=== PATIENT | female | born 1995 | race Caucasian/White ===

== ENCOUNTER 2021-02-02 18:05 | Inpatient (IN) | payer OTHER ==
[2021-02-02 19:18] VITALS: BMI 30.5
[2021-02-02] MEDS ORDERED: Misoprostol 200 MCG TAB PR PRN (19:38)
[2021-02-02] MEDS ORDERED: Methylergonovine 0.2 MG/ML VIAL IM PRN (19:38)
[2021-02-02] MEDS ORDERED: Promethazine HCl 25 MG/ML VIAL IM PRN (19:38)
[2021-02-02] MEDS ORDERED: Ondansetron PF 4 MG/2 ML Vial IVP PRN (19:38)
[2021-02-02] MEDS ORDERED: hydrALAZINE 20 MG/ML VIAL SLOW IVP PRN (19:38)
[2021-02-02] MEDS ORDERED: Lactated Ringer's 1,000 ML IV PRN (19:38)
[2021-02-02] MEDS ORDERED: Butorphanol Tartrate 1 MG/ML VIAL SLOW IVP PRN (19:38)
[2021-02-02] MEDS ORDERED: Lidocaine 1% (PF) 30 ML VIAL SC PRN (19:38)
[2021-02-02] MEDS ORDERED: HYDROcodone/Acetaminophen 5/325 mg Tablet PO PRN ×2 (19:38)
[2021-02-02] MEDS ORDERED: Ibuprofen 800 MG TAB PO PRN (19:38)
[2021-02-02] MEDS ORDERED: NS w/ Oxytocin 30 units 500 ML IV SCH ×2 (19:45)
[2021-02-02 21:15] LABS: Mean Corpuscular HGB CONC 32.1 g/dL (32.0-36.0); Mean Corpuscular Hemoglobin 27.8 pg (27.0-33.0); Mean Corpuscular Volume 86.6 fl (81.6-98.3); Mean Platelet Volume 10.6 fl (7.4-10.4); Platelet Count 273 10x3/uL (150-450); RBC Distribution Width 12.6 % (11.5-14.5); Red Blood Cell (RBC) Count 3.96 10x6/uL (3.90-5.03); White Blood Cell (WBC) Count 12.6 10x3/uL (3.5-10.5)
[2021-02-02 22:24] LABS: SARS-CoV-2 NAA Rapid Test Not Detected (NotDetected)
[2021-02-02 22:34] LABS: Hep B Surf Ag Non-Reactive S/CO (NonReactive); Syphilis Antibody Nonreactive (Nonreactive); Syphilis Antibody Index 0.05 S/CO (<1.00 Non-Reactive)
[2021-02-03] MEDS ORDERED: Fentanyl 2 mcg/Bup 0.1% Cadd 100 ML ONE
[2021-02-03] MEDS ORDERED: Naloxone HCl 0.4 mg/ml Vial IVP PRN ×2 (00:38)
[2021-02-03] MEDS ORDERED: ePHEDrine Sulfate 50 MG/10 ML VIAL SLOW IVP PRN (00:38)
[2021-02-03] MEDS ORDERED: Lactated Ringer's 500 ML IV PRN (00:38)
[2021-02-03] MEDS ORDERED: diphenhydrAMINE 50 MG/ML VIAL IVP PRN (00:38)
[2021-02-03] MEDS ORDERED: Acetaminophen 325 MG TAB PO PRN (00:38)
[2021-02-03] MEDS ORDERED: Hydrocerin (Eucerin) Cream 120 gm Jar TOP PRN (00:38)
[2021-02-03] MEDS ORDERED: Promethazine HCl 25 MG/ML VIAL IM PRN (00:38)
[2021-02-03] MEDS ORDERED: Ondansetron PF 4 MG/2 ML Vial IVP PRN ×2 (00:38→05:09)
[2021-02-03] MEDS ORDERED: Communication Order-Pharmacy FS SCH (00:45)
[2021-02-03] MEDS ORDERED: Fentanyl 2 mcg/Bupivacaine 0.1% Cassette 100 ML EPIDURAL SCH (00:45)
[2021-02-03] MEDS ORDERED: Methylergonovine 0.2 MG/ML VIAL IM PRN (05:09)
[2021-02-03] MEDS ORDERED: Milk Of Magnesia 30 ML UDCUP PO PRN (05:09)
[2021-02-03] MEDS ORDERED: NS w/ Oxytocin 30 units 500 ML IV SCH (05:09)
[2021-02-03] MEDS ORDERED: Benzocaine-Menthol 82.5 ML CAN TOP PRN (05:09)
[2021-02-03] MEDS ORDERED: Boostrix 0.5 ML (Tdap) VIAL IM ONE (05:09)
[2021-02-03] MEDS ORDERED: Bisacodyl 10 MG SUPP PR PRN (05:09)
[2021-02-03] MEDS ORDERED: hydrALAZINE 20 MG/ML VIAL SLOW IVP PRN (05:09)
[2021-02-03] MEDS ORDERED: Misoprostol 200 MCG TAB VAG PRN (05:09)
[2021-02-03] MEDS ORDERED: HYDROcodone/Acetaminophen 5/325 mg Tablet PO PRN ×2 (05:09)
[2021-02-03] MEDS: Ibuprofen 800 MG TAB PO SCH ×3 (05:47→21:11)
[2021-02-03] MEDS: Ferrous Sulfate 325 MG TAB PO SCH (07:24)
[2021-02-03] MEDS: Prenatal Vitamin 1 TAB PO SCH (07:43)
[2021-02-03] MEDS: Docusate Calcium (SURFAK) 240 MG CAP PO SCH ×2 (07:44→21:11)
[2021-02-04] MEDS: Ibuprofen 800 MG TAB PO SCH (05:36)
[2021-02-04 07:59] VITALS: BP 109/63; TEMP 97.9
[2021-02-04] MEDS: Ferrous Sulfate 325 MG TAB PO SCH (09:02)
[2021-02-04] MEDS: Prenatal Vitamin 1 TAB PO SCH (09:14)
[2021-02-04] MEDS: Docusate Calcium (SURFAK) 240 MG CAP PO SCH (09:14)
== END 2021-02-04 11:45 | disposition home or self-care (01) | DRG 807 ==
LOC: CSHLD/OP 18:05 → CSHLD 18:06 → CSHPP 02-03 05:00
PROVIDERS: ADMIT Obstetrics & Gynecology; ATTEND Obstetrics & Gynecology
PROC: 10E0XZZ Delivery of Products of Conception, External Approach (ICD-10-PCS; principal; 2021-02-03)
DX: O69.81X0 Labor and delivery complicated by cord around neck, without compression, not applicable or unspecified (principal); Z37.0 Single live birth; Z3A.39 39 weeks gestation of pregnancy; Z20.822 Contact with and (suspected) exposure to COVID-19
CPT/HCPCS: 36415; 51702; 85027; 86780; 86850; 86900; 86901; 87340; 99285; J2405; U0002

== ENCOUNTER 2021-03-22 10:15 | Inpatient (IN) | payer BC, OTHER ==
[2021-03-22 12:03] LABS: #Eosinphils 0.3 10x3/uL (0.0-0.5); #Monocytes 0.8 10x3/uL (0.0-1.1); #Neutrophils 9.2 10x3/uL (1.5-8.4); %Basophils 0.3 % (0.0-2.0); %Eosinophils 2.2 % (0.0-6.0); %Lymphocytes 10.4 % (18.0-47.0); %Monocytes 7.2 % (0.0-10.0); %Neutrophils 79.7 % (40.0-75.0); Mean Corpuscular HGB CONC 31.8 g/dL (32.0-36.0); Mean Corpuscular Hemoglobin 27.3 pg (27.0-33.0); Mean Corpuscular Volume 85.7 fl (81.6-98.3); Mean Platelet Volume 9.2 fl (7.4-10.4); Platelet Count 299 10x3/uL (150-450); RBC Distribution Width 15.1 % (11.5-14.5); Red Blood Cell (RBC) Count 4.77 10x6/uL (3.90-5.03); White Blood Cell (WBC) Count 11.6 10x3/uL (3.5-10.5)
[2021-03-22 12:14] LABS: ALT (SGPT) 41 U/L (8-55); AST (SGOT) 25 U/L (5-34); Albumin 4.5 g/dL (3.5-5.0); Alkaline Phosphatase 106 U/L (40-110); Anion Gap 15 mmol/L (10-20); BUN (Urea Nitrogen) 8 mg/dL (7.0-18.7); Bilirubin, Total 1.1 mg/dL (0.2-1.2); Calc. Creatinine Clearance 0 mL/min (70-130); Calcium 9.7 mg/dL (7.8-10.44); Carbon Dioxide 29 mmol/L (22-29); Chloride 98 mmol/L (98-107); Globulin 4.1 g/dL (2.4-3.5); Glucose 83 mg/dL (70-105); Potassium 3.6 mmol/L (3.5-5.1); Protein, Total 8.6 g/dL (6.0-8.3); Sodium 138 mmol/L (136-145)
[2021-03-22] MEDS ORDERED: Ketorolac Tromethamine 30 MG/ML VIAL ONE (14:38)
[2021-03-22] MEDS ORDERED: Acetaminophen 500 MG TAB ONE (14:39)
[2021-03-22] MEDS ORDERED: Ondansetron ODT 4 MG TAB PO PRN (16:04)
[2021-03-22] MEDS ORDERED: Acetaminophen 325 MG TAB PO PRN (16:04)
[2021-03-22 17:02] VITALS: BMI 25.6
[2021-03-22] MEDS ORDERED: FLU VACC QS2021-22(6MOS UP)/PF 60 MCG/0.5 ML SYRINGE IM ONE (17:15)
[2021-03-22] MEDS: Ibuprofen 600 MG TAB PO SCH ×2 (17:26→22:14)
[2021-03-22] MEDS: Lactated Ringer's 1,000 ML IV SCH (18:33)
[2021-03-22 19:19] LABS: SARS-CoV-2 NAA Rapid Test Not Detected (NotDetected)
[2021-03-23] MEDS: Lactated Ringer's 1,000 ML IV SCH ×2 (01:00→12:47)
[2021-03-23] MEDS: Vancomycin HCl 750 MG in Sodium Chloride 0.9% 250 ML 250 ML IVPB SCH ×2 (03:37→15:23)
[2021-03-23] MEDS ORDERED: Vancomycin 1 GM in Premix Bag 1 BAG IVPB SCH (04:00)
[2021-03-23] MEDS: Ibuprofen 600 MG TAB PO SCH ×4 (04:13→23:10)
[2021-03-23] MEDS ORDERED: Lanolin Ointment 7 GM TUBE TOP PRN (12:37)
[2021-03-24 03:15] LABS: Vancomycin, Trough 5.6 ug/mL
[2021-03-24] MEDS: Vancomycin HCl 750 MG in Sodium Chloride 0.9% 250 ML 250 ML IVPB SCH (03:33)
[2021-03-24] MEDS: Ibuprofen 600 MG TAB PO SCH ×2 (04:39→11:10)
[2021-03-24 07:35] VITALS: BP 129/71; TEMP 97.8
[2021-03-24] MEDS: Lactated Ringer's 1,000 ML IV SCH (10:34)
[2021-03-24] MEDS ORDERED: Vancomycin HCl 1 GM in Sodium Chloride 0.9% 250 ML 250 ML IVPB SCH (12:00)
== END 2021-03-24 11:00 | disposition home or self-care (01) | DRG 776 ==
LOC: CSHERS 10:15 → CSHPP 16:32
PROVIDERS: ADMIT Obstetrics & Gynecology; ATTEND Obstetrics & Gynecology
DX: O91.23 Nonpurulent mastitis associated with lactation (principal); Z88.1 Allergy status to other antibiotic agents; Z91.040 Latex allergy status; Z79.899 Other long term (current) drug therapy; Z20.822 Contact with and (suspected) exposure to COVID-19
CPT/HCPCS: 0241U; 36415; 80053; 80202; 83605; 85025; 87040; 87070; 87205; J1885; J3370; J7050; J7120

== ENCOUNTER 2024-11-29 14:01 | Emergency (ER) | payer OTHER ==
[2024-11-29 15:05] LABS: #Basophils 0.05 10x3/uL (0.0-0.2); #Eosinophils 0.04 10x3/uL (0.0-0.5); #Monocytes 0.54 10x3/uL (0.0-1.1); #Neutrophils 5.40 10x3/uL (1.5-8.4); %Basophils 0.6 % (0.0-2.0); %Eosinophils 0.5 % (0.0-6.0); %Lymphocytes 25.9 % (18.0-47.0); %Monocytes 6.6 % (0.0-10.0); %Neutrophils 66.2 % (40.0-75.0); Hematocrit 43.4 % (34.9-44.5); Hemoglobin 14.4 g/dL (12.0-15.5); Mean Corpuscular Hemoglobin 29.8 pg (27.0-33.0); Mean Corpuscular Volume 89.7 fL (81.6-98.3); Platelet Count 325 10x3/uL (150-450); Red Blood Cell (RBC) Count 4.84 10x6/uL (3.90-5.03); White Blood Cell (WBC) Count 8.16 10x3/uL (3.5-10.5)
[2024-11-29 15:16] LABS: BHCG - Serum Negative (NEGATIVE); Pregs Control Background? CLEAR/WHITE (CLR/WHITE); Pregs Control Bar Appear? YES (CONTROL BAR)
[2024-11-29 15:29] LABS: ALT (SGPT) 29 U/L (Less than 34); AST (SGOT) 31 U/L (11-34); Albumin 5.0 g/dL (3.1-4.5); Alkaline Phosphatase 69 U/L (40-110); Anion Gap 13 mmol/L (10-20); BUN (Urea Nitrogen) 9 mg/dL (7.0-18.7); Bilirubin, Total 1.4 mg/dL (0.3-1.2); Calc. Creatinine Clearance 0 mL/min (70-130); Calcium 10.0 mg/dL (7.8-10.44); Carbon Dioxide 27 mmol/L (22-29); Chloride 102 mmol/L (98-107); Globulin 3.7 g/dL (2.4-3.5); Glucose 110 mg/dL (70-105); Magnesium 1.9 mg/dL (1.6-2.6); Potassium 3.5 mmol/L (3.5-5.1); Sodium 138 mmol/L (136-145)
[2024-11-29 15:33] LABS: INR-International Normal Ratio 1.0; PTT 27.3 sec (22.0-33.0); Prothrombin Time 11.3 sec (9.5-12.1)
[2024-11-29 15:42] LABS: Glucose, Urine (Dipstick) Normal (Negative); Leukocyte 500 (Negative); Protein, Urine (Dipstick) Negative (Neg-Trace); Specific Gravity, Urine 1.005 (1.005-1.030)
[2024-11-29 16:51] LABS: RBC/HPF 0-3 HPF (0-3)
[2024-11-29 16:52] LABS: CAUTI Indications for Culture Pelvic or flank pain
[2024-11-29 16:53] LABS: Bacteria/HPF 2+ HPF (None Seen)
[2024-11-29 16:56] LABS: Urine Culture Reflex No No
== END 2024-11-29 17:32 | disposition home or self-care (01) ==
LOC: CSHERS 14:01
DX: G51.0 Bell's palsy (principal); N39.0 Urinary tract infection, site not specified; R29.702 NIHSS score 2
CPT/HCPCS: 70496; 70498; 80053; 81001; 83735; 84703; 85025; 85610; 85730; 93005